=== PATIENT | female | born 1970 | race Caucasian/White ===

== ENCOUNTER 2018-09-27 13:00 | Outpatient (CLI) | payer BC, SELFPAY ==
--- NOTE | 2018-09-27 13:33 | DI.RAD_ITS ---
SYMPTOMS/DIAGNOSIS: SHORTNESS OF BREATH, R06.02 CHEST X-RAY, PA AND LATERAL: The heart is normal in size. The lungs are clear. The mediastinal structures and pleura appear intact. IMPRESSION: Normal chest.
== END 2018-09-27 13:20 ==
PROVIDERS: PCP Nurse Practitioner; Visit Provider Nurse Practitioner
DX: R06.02 Shortness of breath (principal)
CPT/HCPCS: 71046

== ENCOUNTER 2018-12-07 09:05 | Outpatient (REF) | payer BC, SELFPAY ==
[2018-12-07 14:15] LABS: Cholesterol 235 mg/dL (50-200); Glucose 88 mg/dL (70-100); HDL Cholesterol 53 mg/dL (40-60); LDL CHOLESTEROL 162 mg/dL (<100); TSH (W/Ref FT4) 3.12 uIU/mL (0.358-3.74); Triglyceride 63 mg/dL (30-150)
== END 2018-12-07 09:25 ==
LOC: NCHCN 09:05
PROVIDERS: PCP Nurse Practitioner; Visit Provider Nurse Practitioner
DX: E78.5 Hyperlipidemia, unspecified (principal)
CPT/HCPCS: 80061; 82947; 83721; 84443

== ENCOUNTER 2019-01-01 05:53 | Emergency (ER) | payer BC, SELFPAY ==
[2019-01-01 05:59] VITALS: BP 112/76; PULSE 87; RESP 14; TEMP 36.7; O2SAT 98
--- NOTE | 2019-01-01 06:54 | ED.GENADUL_ITS ---
Discharge Plan Disposition Patient Disposition: HOME Condition: Good Discharge Details Chief Complaint: RashLesion Clinical Impression: Zoster Primary Care Provider: Milly Menchaca ED Provider: Rafat Santos [place] Meds and New Rx's Prescriptions: Continued norethindrone acetate [Aygestin] 5 mg tablet 5 mg PO DAILY Qty: 90 RF: 3 bupropion HCl 100 MG tablet extended release 12 hr 100 mg PO DAILY RF: 0 levothyroxine 25 MCG tablet 25 mcg PO DAILY RF: 0 albuterol sulfate 8.5 GM HFA aerosol inhaler 2 puff Inhalation Q6H PRN RF: 0 Excedrin Migraine 1 EACH tablet 2 ea PO PRN RF: 0 Changed valacyclovir [Valtrex] 500 MG tablet 1,000 mg PO TID Qty: 42 RF: 0 Discharge Instructions Instructions: Shingles (ED) Additional Instructions: Difficult to determine whether cold sore or zoster. Given the pain along the face we will treat as zoster. Please take prescription as prescribed. Use acetaminophen or ibuprofen for pain. Follow-up with primary care next week if not better. Return to ED if you develop any neurologic symptoms, eye symptoms, or other concerns. Referrals: Milly Menchaca [Primary Care Provider] - Medical Decision Making Difficult to say whether this is simply HSV versus zoster. Given the facial pain would be more worried about zoster. There is no eye involvement. Ear is fine. Face is without rash. We will go ahead and treat with valacyclovir 1 g every 8 hours for 7 days. Follow-up with primary care next week if not doing better. Return to ED if worse especially with any eye symptoms. HPI General Mode of arrival: ambulatory . Date/Time Provider Initiated Documentation: 01/01/19 06:43 . Limitations to Documentation: no limitations . Information obtained by: patient . HPI Narrative: Patient presents to ED with what she thinks may be cold sore versus zoster to the right lip area. She has had something similar in the past. She is conc erned that recurrent zoster given that the whole side of her face hurts. She has no eye symptoms. She did take 1 g of valacyclovir yesterday morning and last night. She has no other symptomatology. Related Data Home Medications Medication Instructions Recorded Confirmed albuterol sulfate 2 puff INHALATION Q6H PRN inhaler 03/18/14 01/01/19 bupropion HCl 100 mg PO DAILY tab-cap 03/18/14 01/01/19 levothyroxine 25 mcg PO DAILY tab-cap 03/18/14 01/01/19 Excedrin Migraine 2 ea PO PRN 07/11/14 01/01/19 norethindrone acetate 5 mg tablet 5 mg PO DAILY #90 tab-cap 10/05/18 01/01/19 valacyclovir [Valtrex] 1,000 mg PO TID #42 tab-cap 01/01/19 Previous Rx's Medication Instructions Recorded norethindrone acetate 5 mg tablet 5 mg PO DAILY #90 tab-cap 10/05/18 valacyclovir [Valtrex] 1,000 mg PO TID #42 tab-cap 01/01/19 Allergies Allergy/AdvReac Type Severity Reaction Status Date / Time nut - unspecified Allergy Severe Anaphylaxsi Verified 01/01/19 06:03 s Penicillins Allergy Verified 01/01/19 06:03 General Stated Complaint: RashLesion ERICK: 4 Review of Systems Eyes Denies change in vision, Denies eye pain and Denies photophobia ENT Reports mouth lesions [facility] Medical History Acquired hypothyroidism (Acute 10/02/17) Migraine (Acute 10/02/17) Sensorineural hearing loss, bilateral (Acute 01/16/17) Menstrual migraine (Resolved) Surgical History Reduction mammoplasty disc, back Social History Smoking/Tobacco Use Status: Never Alcohol Intake: current Alcohol Intake frequency: holidays/special occasions only Drug use: Never Do you feel safe at home: Yes Do you feel safe in your relationship?: Yes Female Reproductive History Menstrual control method: permanent sterilization (Vasectomy for BC - POPs for cycles.) History History 4 Para 3 Hx # Term Pregnancies Multiple births Hx # Pregnancies Ectopic pregnancies AB induced Hx Number of Living Children AB spontaneous Exam Const General: cooperative, comfortable and no acute distress Orientation: alert and oriented x3 HENMT Head: normocephalic and atraumatic Ears: external ears normal, TM's normal bilaterally and EAC's normal Face and sinus: normal facial exam Mouth: tongue normal, oropharynx normal and lip abnormal (Lesion with 3 vesicles at the corner of the right lip.) Eyes Conjunctivae: conjunctivae normal Pupils: PERRL EOM: EOM intact bilaterally Skin Lesions: no lesions Rashes: no rashes Course Vital Signs Temperature 98.1 F 01/01/19 05:59 Pulse 87 01/01/19 05:59 Respiratory Rate 14 01/01/19 05:59 Blood Pressure 112/76 01/01/19 05:59 Pulse Oximetry 98 01/01/19 05:59 Temperature 98.1 F 01/01/19 05:59 Temperature Source Skin 01/01/19 05:59 Pulse 87 01/01/19 05:59 Respiratory Rate 14 01/01/19 05:59 Respiratory Effort Non-Labored 01/01/19 06:03 Blood Pressure 112/76 01/01/19 05:59 Blood Pressure Position Sitting 01/01/19 05:59 Pulse Oximetry 98 01/01/19 05:59 Oxygen Delivery Method Room Air 01/01/19 05:59 Oxygen Flow Rate 0 01/01/19 05:59 Pain Level 5 01/01/19 05:59
== END 2019-01-01 07:02 | disposition home or self-care (01) ==
PROVIDERS: Emergency Provider Emergency Medicine; PCP Nurse Practitioner
DX: B02.9 Zoster without complications (principal)
CPT/HCPCS: 99283

== ENCOUNTER 2019-12-14 08:16 | Outpatient (REF) | payer BC, SELFPAY ==
[2019-12-14 15:31] LABS: Calculated LDL 126 mg/dL (<100); Cholesterol 180 mg/dL (<200); Glucose 80 mg/dL (74-106); HDL Cholesterol 41 mg/dL (40-60); TSH (W/Ref FT4) 2.25 uIU/mL (0.36-3.74); Triglyceride 68 mg/dL (<150)
== END 2019-12-14 08:36 ==
LOC: NCHCN 08:16
PROVIDERS: PCP Nurse Practitioner; Visit Provider Nurse Practitioner
DX: E78.5 Hyperlipidemia, unspecified (principal); E03.9 Hypothyroidism, unspecified
CPT/HCPCS: 80061; 82947; 84443

== ENCOUNTER 2020-01-16 10:08 | Outpatient (CLI) | payer BC, SELFPAY ==
[2020-01-17 12:02] LABS: COVID-19 RT-PCR UVMMC Result Negative (Negative)
== END 2020-01-16 10:28 ==
PROVIDERS: PCP Nurse Practitioner; Visit Provider Nurse Practitioner
DX: J02.9 Acute pharyngitis, unspecified (principal); J06.9 Acute upper respiratory infection, unspecified
CPT/HCPCS: U0003

== ENCOUNTER 2020-03-02 16:38 | Outpatient (REF) | payer BC, SELFPAY ==
[2020-03-02 20:57] LABS: HCT 42.3 % (36.0-46.0); HGB 14.2 g/dL (11.2-15.7); MCHC 33.6 % (32.0-36.0); MCV 89.2 fL (80-95); MPV 10.6 fL (8.0-11.0); Platelet Count 385 10^3/uL (130-400); RBC 4.74 10^6/uL (3.93-5.22); RDW 13.1 % (11.7-14.6); RDW-SD 43.3 fL
[2020-03-02 21:16] LABS: Iron 98 ug/dL (50-170); Total Iron Binding Capacity 308 ug/dL (250-450); Transferrin Sat 32 % (15-50)
[2020-03-02 21:40] LABS: Vitamin B12 728 pg/mL (193-986)
[2020-03-05 06:17] LABS: Vitamin D 25 Total 23.1 ng/ml (30-100)
== END 2020-03-02 16:58 ==
LOC: NCHCN 16:38
PROVIDERS: PCP Nurse Practitioner; Visit Provider Nurse Practitioner
DX: R53.83 Other fatigue (principal)
CPT/HCPCS: 82306; 85027; 82607; 82746; 83540; 83550

== ENCOUNTER 2020-06-25 00:43 | Outpatient (CLI) | payer BC, SELFPAY ==
--- NOTE | 2020-06-25 | DI.MAMMO_ITS ---
EXAM: MG MAMMO SCREENING CLINICAL HISTORY: SCREENING,Z12.39. TECHNIQUE: Bilateral full field digital CC and MLO mammographic images were obtained with 3D tomosyn thesis and utilizing computer aided detection (CAD). COMPARISON: Prior mammograms dating back to 2012, the most recent being May 2019. FINDINGS: Asymmetric tissue in left breast is unchanged from prior studies. There are no new dominant masses nor malignant appearing microcalcification groups. There is no new architectural distortion nor skin thickening-retraction. IMPRESSION: No radiographic evidence of malignancy. BI-RADS Category 1 - Negative Breast Density - Category B - Scattered areas of fibroglandular density Breast density Category C or D implies that the patient has dense breast tissue. Dense breast tissue can make it harder to find cancer on a mammogram. Dense breast tissue is also associated with an incr eased risk of breast cancer. This information about the result of the mammogram report was provided to the patient to raise their awareness. Use this report when you speak with the patient about their risks for breast cancer, which includes their family history. At that time, you may recommend additional screening tests (Ultrasoun d or MRI) as these tests may add significant information. A negative radiographic report should not delay biopsy if a dominant or clinically suspicious mass is present. Up to ten percent of cancers are not identified on mammography. A negative report may reinforce clinical impression. Adenosis and dense breasts may obscure an underlying neoplasm. False positive reports average 6 to 10%. Patient will receive a letter notifying them of these results.
== END 2020-06-25 01:03 ==
PROVIDERS: PCP Nurse Practitioner; Visit Provider Nurse Practitioner
DX: Z12.31 Encounter for screening mammogram for malignant neoplasm of breast (principal)
CPT/HCPCS: 77063; 77067

== ENCOUNTER 2021-06-10 15:09 | Outpatient (REF) | payer BC, SELFPAY ==
--- NOTE | 2021-06-10 13:30 | PAPFT_PTH ---
PATIENT: Alma Luther LOC: [facility] U#:[id number] AGE/SX: 50/F ROOM: RE06/10/[address]: BRINDA Christensen : 1970 BED: DIS: 06/10/2021 SPEC #: [id number] RECD: 06/10/21 18:03 STATUS: NANCY REQ #: [id number] HEIDE: 06/10/21 13:[address]: Gail Castro DEPT: [facility] Cytology RECD BY: Renee Gonzalez ENTERED: 06/10/21 18:04 SP TYPE: PAPFT OTHR DR: Milly Menchaca Tissues: 1 - CX/ENDOCX FOR PAP SMEARS Procedures: PAP THIN PREP/UVM Screening HPV DNA PROBE Comments: [id number]
== END 2021-06-10 15:10 | disposition home or self-care (01) ==
LOC: LBN 15:09
PROVIDERS: PCP Nurse Practitioner; Visit Provider Nurse Practitioner Family
DX: Z12.4 Encounter for screening for malignant neoplasm of cervix (principal); Z11.51 Encounter for screening for human papillomavirus (HPV)
CPT/HCPCS: 88142; 87624

== ENCOUNTER 2021-06-21 08:43 | Outpatient (REF) | payer BC, SELFPAY ==
[2021-06-21 15:01] LABS: ALT 40 U/L (14-59); AST 22 U/L (15-37); Albumin 4.3 g/dL (3.4-5.0); Alkaline Phosphatase 55 U/L (46-116); BUN 10 mg/dL (7-18); Bilirubin, Total 0.5 mg/dL (0.2-1.0); CREATININE 0.8 mg/dL (0.55-1.02); Calcium 9.2 mg/dL (8.5-10.1); Calculated LDL 123 mg/dL (<100); Chloride 104 mmol/L (98-107); Cholesterol 211 mg/dL (<200); Glucose 84 mg/dL (74-106); HDL Cholesterol 78 mg/dL (40-60); Potassium 4.3 mmol/L (3.5-5.1); Sodium 140 mmol/L (136-145); Total Protein 7.3 g/dL (6.4-8.2); Triglyceride 52 mg/dL (<150)
== END 2021-06-21 08:44 | disposition home or self-care (01) ==
LOC: NCHCN 08:43
PROVIDERS: PCP Nurse Practitioner; Visit Provider Nurse Practitioner
DX: E78.5 Hyperlipidemia, unspecified (principal); E03.9 Hypothyroidism, unspecified; J45.20 Mild intermittent asthma, uncomplicated; F32.9 Major depressive disorder, single episode, unspecified
CPT/HCPCS: 80053; 80061; 84443

== ENCOUNTER 2021-06-25 15:52 | Outpatient (REF) | payer BC, SELFPAY ==
--- NOTE | 2021-06-25 15:00 | ENDOMET_PTH ---
PATIENT: Alma Luther LOC: [facility] #:[id number] AGE/SX: 51/F ROOM: RE06/25/[address]: Jenna Forde : 1970 BED: DIS: 06/25/2021 SPEC #: [id number] RECD: 06/25/21 17:28 STATUS: NANCY REQ #: [id number] HEIDE: 06/25/21 15:[address]: Jenna Forde DEPT: Surgical Specimen RECD BY: Renee Gonzalez ENTERED: 06/25/21 17:29 SP TYPE: Endomet OTHR DR: Milly Menchaca Tissues: 1 - ENDOMETRIUM BX/CURRETTE Procedures: GROSS AND MICRO LEVEL 4 Comments: [id number]
== END 2021-06-25 15:53 | disposition home or self-care (01) ==
LOC: LBN 15:52
PROVIDERS: PCP Nurse Practitioner; Visit Provider Obstetrics & Gynecology Gynecology
DX: N85.8 Other specified noninflammatory disorders of uterus (principal)
CPT/HCPCS: 88305

== ENCOUNTER 2021-07-15 04:17 | Outpatient (CLI) | payer BC, SELFPAY ==
[2021-07-15 10:11] LABS: HGB 12.1 g/dL (11.2-15.7); MCH 25.6 pg (27.0-33.0); MCHC 31.8 % (32.0-36.0); MCV 80.5 fL (80-95); MPV 9.3 fL (8.0-11.0); Platelet Count 420 10^3/uL (130-400); RBC 4.72 10^6/uL (3.93-5.22); RDW 13.8 % (11.7-14.6); RDW-SD 40.8 fL; WBC 6.99 10^3/uL (4.4-10.8)
[2021-07-15 10:49] LABS: Anion Gap 10.5 mmol/L (3-11); CO2 25.5 mmol/L (21.0-32.0); Chloride 104 mmol/L (98-107); HCG Qual (Serum) Negative; Sodium 140 mmol/L (136-145)
[2021-07-16 20:46] LABS: COVID-19 RT-PCR UVMMC Result Negative (Negative)
== END 2021-07-15 04:18 | disposition home or self-care (01) ==
LOC: LBO 04:18
PROVIDERS: PCP Nurse Practitioner; Visit Provider Obstetrics & Gynecology Gynecology
DX: N93.8 Other specified abnormal uterine and vaginal bleeding (principal); Z20.822 Contact with and (suspected) exposure to COVID-19; Z01.818 Encounter for other preprocedural examination; Z01.812 Encounter for preprocedural laboratory examination; Z01.84 Encounter for antibody response examination
CPT/HCPCS: 36415; 80051; 85027; 86850; 86900; 86901; 87635; U0003; 84703

== ENCOUNTER 2021-07-17 08:28 | Day surgery (SDC) | payer BC, SELFPAY ==
[2021-07-17] VITALS (13 sets, daily range): BP systolic 115–152; BP diastolic 66–101; PULSE 74–93; RESP 15–20; TEMP 36–36.9; O2SAT 96–100; BMI 28.1
[2021-07-17] MEDS: Lactated Ringers 1,000 ML 125 ML IV (09:02)
--- NOTE | 2021-07-17 09:34 | W.ANESPRE ---
General Info Date of Service Date Performed: 07/17/21 Height: 5 ft 6 in Weight: 79.1 kg Body Mass Index (BMI): 28.1 Surgical Procedure: Operation Date: 07/17/21 10:25 Proposed Procedures Side Surgeon brendon Carrero Endometrial Ablation Jenna Forde MD Meds Allergies and Home Medications Allergies Allergy/AdvReac Type Severity Reaction Status Date / Time nut - unspecified Allergy Severe Anaphylaxsi Verified 07/17/21 08:45 s Penicillins Allergy Verified 07/17/21 08:45 Home Medication Medication Instructions Recorded bupropion HCl 100 mg PO DAILY tab-cap 03/18/14 levothyroxine 25 mcg PO DAILY tab-cap 03/18/14 Excedrin Migraine 2 ea PO PRN 07/11/14 valacyclovir [Valtrex] 1,000 mg PO TID #42 tab-cap 01/01/19 norethindrone (contraceptive) 0.35 0.35 mg PO DAILY #84 tab 07/12/20 mg tablet albuterol sulfate 2.5 mg INHALATION Q4H PRN 06/27/21 albuterol sulfate 90 mcg/actuation 2 puff INHALATION Q6H PRN 06/27/21 aerosol inhaler epinephrine 0.3 mg/0.3 mL 0.3 mg IM ONCE 06/27/21 injection, auto-injector hydrocortisone acetate 25 mg 25 mg HI BID 06/27/21 rectal suppository triamcinolone acetonide 0.5 % 1 applic TOPICAL BID 06/27/21 topical cream Current Visit Medications: Current Medications Generic Name Dose Route Start Last Admin Trade Name Freq PRN Reason Stop Dose Admin Ringer's Solution 1,000 mls @ 125 mls/hr 07/17/21 06:00 07/17/21 09:02 IV 07/19/21 23:59 125 mls/hr INFUSION HOLLY Administration IV Miscellaneous Supplies 1 each 07/17/21 06:00 Iv Access IV 07/19/21 23:59 DIRECTED HOLLY Sodium Chloride 0 ml 07/17/21 06:00 Normal Saline Flush 10 Ml Syr IV 07/19/21 23:59 PRN PRN Sodium Chloride 0 ml 07/17/21 06:00 Normal Saline 10 Ml Vial IJ 07/19/21 23:59 DIRECTED PRN Sterile Water 0 ml 07/17/21 06:00 Water,Injection,Sterile 10 Ml Vial IJ 07/19/21 23:59 DIRECTED PRN PFSH Active Problems Active Problems: Problem Status Onset Code Sensorineural hearing loss, bilateral 01/16/17 H90.3 Migraine 10/02/17 G43.909 Acquired hypothyroidism 10/02/17 E03.9 Screening for colon cancer Z12.11 Hyperlipidemia E78.5 Asthma, intermittent J45.20 Depression F32.A Hypothyroid E03.9 Abnormal uterine bleeding (AUB) N93.9 History of endometrial biopsy Z92.89 Pre-op exam Z01.818 Medical History Medical History (Updated 07/17/21 @ 08:44 by Sandra Becerra RN) Atopic dermatitis Hx of varicose veins of lower extremity Left ankle surgery Menstrual migraine Vaginal Pap smear with ASC-US Medical History Comments:: Pt states she is anxious/hyper spoke w/ JOVANY Wilkinson. Surgical History Surgical History disc, back Reduction mammoplasty Tobacco Smoking/Tobacco Use Status: Never Alcohol Alcohol Intake: current Alcohol intake frequency: holidays/special occasions only Substance Use Substance use: Never Substance use type: does not use Prental History History 4 Para 3 Hx # Term Pregnancies Multiple births Hx # Pregnancies Ectopic pregnancies AB induced Hx Number of Living Children AB spontaneous Vital Signs and Lab Results Vital Signs Most Recent Vital Signs in EMR: Most Recent Vital Signs Temp Pulse Resp BP Pulse Ox 36.9 C 93 H 20 115/8 L 99 07/17/21 08:38 07/17/21 08:38 07/17/21 08:38 07/17/21 08:38 07/17/21 08:38 Vital Signs Comment Vital Signs Comment:: BP 115/78 Lab Results Blood Type / Crossmatch: Patient ABO/Rh AB Positive 07/15/21 09:35 07/15/21 Antibody Screen NEGATIVE 07/15/21 09:35 07/15/21 Complete Blood Count: White Blood Count 6.99 10^3/uL (4.4-10.8) 07/15/21 09:35 07/15/21 Red Blood Count 4.72 10^6/uL (3.93-5.22) 07/15/21 09:35 07/15/21 Hemoglobin 12.1 g/dL (11.2-15.7) 07/15/21 09:35 07/15/21 Hematocrit 38.0 % (36.0-46.0) 07/15/21 09:35 07/15/21 Platelet Count 420 10^3/uL (130-400) H 07/15/21 09:35 07/15/21 Complete Metabolic Panel: Sodium Level 140 mmol/L (136-145) 07/15/21 09:35 07/15/21 Potassium Level 4.0 mmol/L (3.5-5.1) 07/15/21 09:35 07/15/21 Chloride Level 104 mmol/L (98-107) 07/15/21 09:35 07/15/21 Carbon Dioxide Level 25.5 mmol/L (21.0-32.0) 07/15/21 09:35 07/15/21 Blood Urea Nitrogen 10 mg/dL (7-18) 06/21/21 08:04 06/21/21 Creatinine 0.8 mg/dL (0.55-1.02) 06/21/21 08:04 06/21/21 Estimated GFR/1.73 m2 >= 60.00 (mL/min/1.73m2) 06/21/21 08:04 06/21/21 Calcium Level 9.2 mg/dL (8.5-10.1) 06/21/21 08:04 06/21/21 Albumin 4.3 g/dL (3.4-5.0) 06/21/21 08:04 06/21/21 Glucose Level 84 mg/dL (74-106) 06/21/21 08:04 06/21/21 Liver Function Panel: Alanine Aminotransferase (ALT/SGPT) 40 U/L (14-59) 06/21/21 08:04 06/21/21 Aspartate Amino Transf (AST/SGOT) 22 U/L (15-37) 06/21/21 08:04 06/21/21 Coagulation Panel: No Data to Display Cardiac Panel: No Data to Display Arterial Blood Gas: No Data to Display Venous Blood Gas: No Data to Display Pancreas Panel: No Data to Display Thyroid Panel: Thyroid Stimulating Hormone (TSH) 1.50 uIU/mL (0.36-3.74) 06/21/21 08:04 06/21/21 Infectious Disease: Coronavirus (COVID-19)(PCR) Negative (Negative) 07/15/21 10:27 07/15/21 Blood Cultures: No Data to Display Toxicology Panel: No Data to Display Panel: Serum HCG, Qualitative Negative 07/15/21 09:35 07/15/21 Anesthesia Assessment and Plan Anesthesia History Personal History: Unknown Anesthesia History and Other (2 surgeries in the 90's, both times awoke with anxiety and shaking and unable to sleep x 48 hours) Family History: No Family History of Anesthesia Complications Exercise Tolerance Exercise Tolerance: Metabolic Equivalents>4 Pertinent Negatives Pertinent Negatives: No Symptoms of GERD, No Major Cardiovascular Symptoms or Complaints, No Major Pulmonary Symptoms or Complaints and No History of CVA/TIA Cardiac & Pulmonary Exam Cardiac Exam: Normal S1/S2 Heart Sounds Pulmonary Exam: Clear Bilateral Breath Sounds Implantable Cardiac Device Does patient have a Pacemaker or an ICD?: No Airway Exam Known Difficult Airway: No Mallampati Class: 2 Mouth Opening: Normal (> 3cm) Thyromental Distance: Greater than 3 cm Neck Range of Motion: Full ROM Neck Circumference: Normal Teeth Condition: Normal Dentition ASA Classification ASA Score: ASA 2 Emergency Case?: No NPO Status NPO Status: NPO Clears >2 hours, Solids >8 hours Status Status: Negative HCG Anesthesia Plan Resuscitation Status: Full Code Anesthesia Technique: General Anesthesia Airway Planned: LMA Monitors Used: Standard Monitors
[2021-07-17] MEDS: Bupivacaine 0.25% Pres-Free 30 ML VIAL (11:23)
[2021-07-17] MEDS: Silver Nitrate Stick 1 EACH (11:48)
--- NOTE | 2021-07-17 12:14 | W.PM.DSUDISC ---
Discharge Plan Disposition Patient Disposition: HOME Condition: Fair Discharge Details Attending Provider: Jenna Forde Primary Care Provider: Milly Menchaca Home Meds and New Rx's Prescriptions: Continued bupropion HCl 100 MG tablet extended release 12 hr 100 mg PO DAILY RF: 0 levothyroxine 25 MCG tablet 25 mcg PO DAILY RF: 0 Excedrin Migraine 1 EACH tablet 2 ea PO PRN RF: 0 triamcinolone acetonide 0.5 % cream 1 applic topical BID RF: 0 albuterol sulfate 2.5 mg /3 mL (0.083 %) solution for nebulization 2.5 mg inhalation Q4H PRNRF: 0 albuterol sulfate [ProAir HFA] 90 mcg/actuation HFA aerosol inhaler 2 puff inhalation Q6H PRNRF: 0 hydrocortisone acetate [Anucort-HC] 25 mg suppository 25 mg [place] BID RF: 0 epinephrine [EpiPen 2-Saravanan] 0.3 mg/0.3 mL auto-injector 0.3 mg IM ONCE RF: 0 valacyclovir [Valtrex] 500 MG tablet 1,000 mg PO TID Qty: 42 RF: 0 Discontinued norethindrone (contraceptive) 0.35 mg tablet 0.35 mg PO DAILY Qty: 84 RF: 2 Discharge Instructions Additional Instructions: Keep your follow up appointment with Dr. Forde. You may have vaginal bleeding for 2-3 days after the procedure. There will be watery discharge for 4 to 6 weeks after the ablation. No intercourse or tampons until the discharge has stopped Stand Alone Forms: DSU Post Gynecology Surgery Activity:: Activity as Tolerated Diet:: As Tolerated Discharge Orders Discharge Orders: Discharge Order (Routine); Ordered 07/17/21 Ordered By: Jenna Forde DS: Diagnosis Discharge Diagnosis (1) Abnormal uterine bleeding (AUB): Status: Acute (2) History of endometrial ablation: Status: Acute
--- NOTE | 2021-07-17 12:21 | W.PM.OP ---
Date of service: 07/17/21 Time of Service: 12: Operative Note Operative Note DATE OF PROCEDURE: 07/17/21 PRE-OP DIAGNOSIS: Abnormal uterine bleeding POST-OP DIAGNOSIS: same PROCEDURE: Hydrothermal endometrial ablation SURGEON: Jenna Forde ANESTHESIA TYPE: General LMA/ETT Refer to Anesthesia Record ESTIMATED BLOOD LOSS: 0 PATHOLOGY: none sent COMPLICATIONS: None Patient was transported to: same day Patient's condition: stable Indications: 51yo menstruating female with a history of abnormal uterine bleeding not improved with oral norethindrone. Patient wished definitive treatment after normal endometrial biopsy and normal pelvic ultrasound was performed. Findings: Normal-appearing endometrial cavity. Both tubal ostia were visualized. No intracavitary filling defects. Procedure Description: Patient was taken to the operating room where she was placed in the dorsal supine position and LMA general anesthesia was administered without difficulty. She was then placed in the dorsolithotomy position in yellowfin stirrups and prepped and draped in the usual sterile fashion. SCDs were in place. No antibiotics were required. After a surgical timeout was performed a bivalve speculum was placed in the patient's vagina. The anterior lip of the cervix was infiltrated with 1 cc 0.25% bupivacaine and a single-tooth tenaculum was used to grasp the anterior lip of the cervix. A paracervical block was performed with infiltration of 5 cc of 0.25% bupivacaine at the 4 o'clock and 8 o'clock paracervical spaces respectively. Cervix was then sequentially dilated to a maximum of 8 Luz. A hysteroscope sheath was inserted into the uterine cavity and a cavity assessment was performed with the above noted findings. The tip of the hysteroscope sheath was positioned to allow visualization of the uterine fundus, both tubal ostia in the midportion of the uterine cavity. The sheath was protected from the vaginal sequeira by the vagina proximity to the speculum. Heated isotonic saline was then administered via gravity into the uterus through the sheath. Once a safety assessment was performed the treatment phase of the procedure began and under direct observation the uterine cavity was treated with heated isotonic saline at 90 ?C for 10 minutes. Intrauterine cool-down phase was performed for 1 minute. The uterine cavity was carefully assessed with hysteroscopy and was noted to have a satisfactory treatment effect and the integrity of the uterine cavity was confirmed. After these findings the hysteroscope was removed as were the instruments removed from the vagina. Tenaculum site was noted to be hemostatic. The speculum was removed and the patient placed in the dorsal supine position. She was successfully awakened from anesthesia and transported to day surgery unit in stable condition. All sponge lap needle counts correct x2.
[2021-07-17] MEDS: fentaNYL 100 MCG/2 ML VIAL IVP ×3 (12:27→12:36)
[2021-07-17] MEDS: oxyCODONE 5 mg/Acetaminophen 325 mg TAB PO (13:10)
[2021-07-17] MEDS: Ketorolac 15 MG/ML VIAL IVP (13:24)
[2021-07-17] MEDS: LORazepam 2 MG/ML VIAL 0.5 MG IVP ×2 (13:56→14:29)
[2021-07-17] MEDS: oxyCODONE 5 mg/Acetaminophen 325 mg TAB 1 TAB PO (14:05)
--- NOTE | 2021-07-17 14:34 | W.ANESPOSTOP ---
Postoperative Evaluation Date, Time and Location Date Performed: 07/17/21 Time Performed: 14:34 Patient Location: Day Surgery Unit Vital Signs Most Recent Imported Vital Signs: Most Recent Vital Signs Temp Pulse Resp BP Pulse Ox 36.3 C L 74 18 132/77 100 07/17/21 14:07 07/17/21 14:07 07/17/21 14:07 07/17/21 14:07 07/17/21 14:07 Pain Score Most Recent Pain Score: Most Recent Pain Score Pain Level 7 07/17/21 14:07 Assessment Mental Status: Awake (Alert & Oriented to Patient Baseline) Airway and Respiratory Function: Patent airway with normal (patient baseline) respiratory exam Cardiovascular Function: Hemodynamically Stable Hydration Status: Adequately Hydrated Nausea & Vomiting: No Nausea or Vomiting Pain: Pain is Moderate or Severe Postoperative Pain Management: Pain being addressed with medication Peripheral Nerve Block: Patient did not receive a nerve block Teaching Patient Teaching: Discussed Safe Use of Pain Medication Given Recent Anesthesia Postoperative Comments:: Pt. states with her prior anesthetic 20 years ago, she woke up and was very shaky/anxious due to the anesthesia. I explained that anesthesia has changed since then and she likely would not have this experience again. Her anesthetic was uncomplicated. When she awoke in PACU, she was pain free, no nausea and doing well when asked. She now is in DSU and is rolling in bed, anxious, states she can not stay still and is having 7/10 abdominal discomfort. She has been given oral pain medication as well as ativan with some improvement. Patient is motivated to go home. Additional dose ativan given with great result. Pt. will rest and then be discharged with PO Ativan for home as well. Patient and agree to plan.
== END 2021-07-17 15:50 | disposition home or self-care (01) ==
PROVIDERS: PCP Nurse Practitioner; Visit Provider Obstetrics & Gynecology Gynecology
PROC: (CPT 58353; principal; 2021-07-17 10:15)
DX: N93.9 Abnormal uterine and vaginal bleeding, unspecified (principal); E78.5 Hyperlipidemia, unspecified; J45.909 Unspecified asthma, uncomplicated
CPT/HCPCS: 58563; J1100; J1885; J2060; J2250; J2405; J2704; J3010

== ENCOUNTER → 2022-04-22 17:56 | Outpatient (CLI) | payer BC, SELFPAY ==
--- NOTE | 2022-04-22 | DI.RAD_ITS ---
Exam(s) XR FOREARM LT EXAM: XR FOREARM LT CLINICAL HISTORY: joint pain. TECHNIQUE: 2D digital imaging was performed. Two views. COMPARISON: CR,XR XR WRIST LT COMPLETE from 04/22/2022 FINDINGS: BONES: No acute fracture is present. No bony destructive lesion is seen. Visualized portion of elbow and wrist joints are unremarkable. SOFT TISSUE: Mild soft tissue swelling near ulnar. IMPRESSION: No acute bony abnormality. DATA REPOSITORY: RADIATION DOSE DELIVERED:
--- NOTE | 2022-04-22 | DI.RAD_ITS ---
Exam(s) XR WRIST LT COMPLETE EXAM: XR WRIST LT COMPLETE CLINICAL HISTORY: Joint pain. TECHNIQUE: 2D digital imaging was performed. Three views. COMPARISON: No exams were available for comparison FINDINGS: BONES: No acute fracture is present. No bony destructive lesion is seen. JOINTS: The carpal bones are normally aligned. SOFT TISSUE: Normal. IMPRESSION: Unremarkable radiographs of the left wrist. DATA REPOSITORY: RADIATION DOSE DELIVERED:
--- NOTE | 2022-04-22 18:38 | DI.VRAD_ITS ---
PROCEDURE INFORMATION: Exam: XR Left Forearm Exam date and time: 04/22/2022 18:13 Age: 51 years old Clinical indication: Patient HX: Pain for 10 months TECHNIQUE: Imaging protocol: Radiologic exam of the Left forearm. Views: 2 views. COMPARISON: CR XR WRIST LT COMPLETE 04/22/2022 18:11 FINDINGS: Bones/joints: No acute fracture or subluxation. Partially imaged is a small likely incidental benign exostosis of the distal anterior humerus. Soft tissues: Mild swelling in the distal forearm. IMPRESSION: No acute bony pathology. Dictated and Authenticated by: Carolee Meléndez MD. Ordering:MAG Steen MD
--- NOTE | 2022-04-22 18:39 | DI.VRAD_ITS ---
PROCEDURE INFORMATION: Exam: XR Left Wrist Exam date and time: 04/22/2022 18:11 Age: 51 years old Clinical indication: Pain; Wrist; Left TECHNIQUE: Imaging protocol: Radiologic exam of the Left wrist. Views: 3 or more views. COMPARISON: No relevant prior studies available. FINDINGS: Bones/joints: Mild distal radioulnar degenerative changes. No acute fracture or subluxation. Soft tissues: Mild generalized soft tissue swelling. IMPRESSION: No acute bony pathology. Dictated and Authenticated by: Carolee Meléndez MD. Ordering:MAG Steen MD
== END ==
PROVIDERS: PCP Nurse Practitioner; Visit Provider Nurse Practitioner Family
DX: M79.632 Pain in left forearm (principal); M25.532 Pain in left wrist
CPT/HCPCS: 73090; 73110

== ENCOUNTER 2022-07-28 02:33 | Outpatient (CLI) | payer BC, SELFPAY ==
--- NOTE | 2022-07-28 | DI.MAMMO_ITS ---
Exam(s) MAMMO SCREENING EXAM: MAMMO SCREENING CLINICAL HISTORY: SCREENING, Z12.39 TECHNIQUE: Mammograms were interpreted according to the usual protocol including computer analysis w [employer] CAD system, tomosynthesis and C-view imaging. COMPARISON: 2012 through 2019 FINDINGS: The breasts are composed of scattered fibroglandular densities, Breast Density category B. On the MLO view of the left breast, there is a small asymmetric area of nodularity seen in the centra l tissue, not definitely seen on the CC view. Spot compression views and ultrasound are requested fo r further evaluation. There has been no change in the right breast. No suspicious microcalcifications are seen in either breast.. There is mild bilateral scarring relat ed to prior breast reduction surgery. No skin thickening or abnormal axillary lymph nodes are seen. There has been no significant change from prior exams. IMPRESSION: BI-RADS Category 0 - Assessment Incomplete: Need additional imaging evaluation Yearly screening mammography is recommended. Breast Density - Category B, scattered fibroglandular densities. A negative radiographic report should not delay biopsy if a dominant or clinically suspicious mass is present. Up to ten percent of cancers are not identified on mammography. A negative report may reinforce clinical impression. Adenosis and dense breasts may obscure an underlying neoplasm. False positive reports average 6 to 10%. Patient will receive a letter notifying them of these results.
== END 2022-07-28 02:53 ==
LOC: DI 02:34
PROVIDERS: PCP Nurse Practitioner Family; Visit Provider Nurse Practitioner Family
DX: Z12.31 Encounter for screening mammogram for malignant neoplasm of breast (principal); R92.8 Other abnormal and inconclusive findings on diagnostic imaging of breast
CPT/HCPCS: 77063; 77067

== ENCOUNTER 2022-08-04 01:35 | Outpatient (CLI) | payer BC, SELFPAY ==
--- NOTE | 2022-08-04 | DI.MAMMO_ITS ---
Exam(s) MG MAMMO SCREEN CALL BACK UNI US BREAST LT COMPLETE EXAM: MG MAMMO SCREEN CALL BACK UNI and U/S breast LT complete CLINICAL HISTORY: F/U MAMMO, LT SMALL ASYMMETRIC AREA OF NODULARITY,R92.8. TECHNIQUE: Craniocaudal and mediolateral oblique Full Field Digital Mammography views of the left br east with Computer Aided Diagnosis followed by Tomosynthesis and left breast ultrasound. COMPARISON: Comparison is made with prior examinations. FINDINGS: Mammography/Tomosynthesis: Masses/Architectural Distortion: There of concern is less apparent on the current examination. No linares spicious masses or areas of architectural distortion are identified. Microcalcifictions: No suspicious pleomorphic-type are seen. Skin Thickening/Nipple Retraction: None. Complete left breast US: Echotexture: Normal appearance of the glandular tissue. Shadowing: No suspicious foci. Cyst: There are 2 cysts seen at the 12 o'clock position 1 cm from the nipple the larger measures 5 mm the smaller measures 4.8 mm. Solid lesions: None seen. Ductal dilation: None. IMPRESSION: 1. No evidence of malignancy is noted. 2. Unless there is more urgent need, follow-up screening mammography is recommended, as per [employer] guidelines. 3. The findings were discussed with the patient on the date of the examination. BI-RADS Category 2 - Benign Findings Breast Density - Category B - Scattered areas of fibroglandular density Breast density Category C or D implies that the patient has dense breast tissue. Dense breast tissue can make it harder to find cancer on a mammogram. Dense breast tissue is also associated with an incr eased risk of breast cancer. This information about the result of the mammogram report was provided to the patient to raise their awareness. Use this report when you speak with the patient about their risks for breast cancer, which includes their family history. At that time, you may recommend additional screening tests (Ultrasoun d or MRI) as these tests may add significant information. A negative radiographic report should not delay biopsy if a dominant or clinically suspicious mass is present. Up to ten percent of cancers are not identified on mammography. A negative report may reinforce clinical impression. Adenosis and dense breasts may obscure an underlying neoplasm. False positive reports average 6 to 10%. Patient will receive a letter notifying them of these results.
== END 2022-08-04 01:55 ==
LOC: DI 01:36
PROVIDERS: PCP Nurse Practitioner Family; Visit Provider Nurse Practitioner Family
DX: R92.8 Other abnormal and inconclusive findings on diagnostic imaging of breast (principal)
CPT/HCPCS: 76642; 77063; 77067

== ENCOUNTER 2022-09-15 02:57 | Outpatient (CLI) | payer BC, SELFPAY ==
[2022-09-15 12:45] LABS: Abs Immature Grans 0.02 10^3/uL (0.0-0.06); Absolute Basophil Count 0.04 10^3/uL (0.0-0.2); Absolute Eosinophil Count 0.08 10^3/uL (0.0-0.7); Absolute Monocyte Count 0.52 10^3/uL (0.1-0.8); Absolute Neutrophil Count 3.84 10^3/uL (1.2-6.7); Basophils % 0.6; Eosinophils % 1.3; HGB 13.3 g/dL (11.2-15.7); Immature Grans % 0.3; Lymphocytes % 29.7; MCH 28.6 pg (27.0-33.0); MCHC 33.3 % (32.0-36.0); MCV 86 fL (80-95); MPV 9.6 fL (8.0-11.0); Monocytes % 8.1; Platelet Count 381 10^3/uL (130-400); RBC 4.65 10^6/uL (3.93-5.22); RDW 13.3 % (11.7-14.6); RDW-SD 41.5 fL
[2022-09-15 13:24] LABS: ALT 35 U/L (14-59); AST 32 U/L (15-37); Albumin 3.9 g/dL (3.4-5.0); Alkaline Phosphatase 58 U/L (46-116); BUN 9 mg/dL (7-18); Bilirubin, Total 0.6 mg/dL (0.2-1.0); CREATININE 0.7 mg/dL (0.55-1.02); Calculated LDL 120 mg/dL (<100); Chloride 107 mmol/L (98-107); Cholesterol 210 mg/dL (<200); Estimated GFR 104.65 (mL/min/1.73m2); Glucose 83 mg/dL (74-106); HDL Cholesterol 73 mg/dL (40-60); Sodium 143 mmol/L (136-145); TSH (W/Ref FT4) 1.85 uIU/mL (0.36-3.74); Total Protein 7.1 g/dL (6.4-8.2); Triglyceride 88 mg/dL (<150); Vitamin B12 992 pg/mL (193-986)
== END 2022-09-15 02:58 | disposition home or self-care (01) ==
LOC: LOS 02:57
PROVIDERS: PCP Nurse Practitioner Family; Visit Provider Nurse Practitioner Family
DX: Z00.00 Encounter for general adult medical examination without abnormal findings (principal); E03.9 Hypothyroidism, unspecified; F32.89 Other specified depressive episodes; E78.5 Hyperlipidemia, unspecified
CPT/HCPCS: 36415; 80053; 80061; 82607; 84443; 85025

== ENCOUNTER 2022-12-26 12:49 | Emergency (ER) | payer BC, SELFPAY ==
[2022-12-26 12:52] VITALS: BP 109/69; PULSE 88; RESP 18; TEMP 36.8; O2SAT 96
--- NOTE | 2022-12-26 12:58 | ED.GENADUL_ITS ---
Discharge Plan Disposition Patient Disposition: Home Condition: Stable Discharge Details Clinical Impression: Ovarian cyst Primary Care Provider: LAWRENCE KIM ED Provider: Renee Gould Home Meds and New Rx's Prescriptions: Continued lorazepam [Ativan] 0.5 mg tablet 0.5 mg PO TID PRN (Reason: anxiety) Qty: 6 0RF oxycodone-acetaminophen [Percocet] 5-325 mg tablet 1 tab PO Q6H MDD 4 PRN (Reason: pain) Qty: 4 0RF bupropion HCl 100 MG tablet extended release 12 hr 100 mg PO DAILY levothyroxine 25 MCG tablet 25 mcg PO DAILY Excedrin Migraine 1 EACH tablet 2 ea PO PRN triamcinolone acetonide 0.5 % cream 1 applic topical BID albuterol sulfate 2.5 mg /3 mL (0.083 %) solution for nebulization 2.5 mg inhalation Q4H PRN albuterol sulfate [ProAir HFA] 90 mcg/actuation HFA aerosol inhaler 2 puff inhalation Q6H PRN hydrocortisone acetate [Anucort-HC] 25 mg suppository 25 mg VT BID epinephrine [EpiPen 2-Saravanan] 0.3 mg/0.3 mL auto-injector 0.3 mg IM ONCE Rx Instructions: as a single dose valacyclovir [Valtrex] 500 MG tablet 1,000 mg PO TID Qty: 42 0RF Discharge Instructions Instructions: Ovarian Cyst (ED) Additional Instructions: take ibuprofen and Tylenol as needed for pain Warm compresses as needed Follow-up with [facility] at your scheduled appointment Return earlier should you have weakness, dizziness, dramatic change in pain, or with any new or worsening complaints Referrals: Zaria Luis DO [OSTEOPATHIC DOCTOR] - Discharge Data Discharge Date/Time-TO BE ENTERED AT DEPARTURE: 12/26/22 15:59 Medical Decision Making 52-year-old female presenting with right lower quadrant abdominal pain, history of endometrial ablation, symptoms are consistent with likely ovulation per patient Unsure as the pain is intractable when it does come on, worsens this morning. Denies any fever or chills. Denies any chance of . Sexually active and monogamous with her We will order ultrasound for further differentiation Will likely be discharged home, suspect ovarian cyst Ultrasound per radiology interpretation my review shows likely hemorrhagic right ovarian cyst, hemodynamically stable, referred to [facility] in the outpatient setting Return precautions reviewed and patient expressed understanding HPI General Date/Time Provider Initiated Documentation: 12/26/22 12:50 . HPI Narrative: This 52-year-old female presents with report of right lower quadrant pain intermittently for the past 3 months. Has not been evaluated for her pain. States she is status post endometrial ablation, had a history of endometriosis per patient. States that she is noted that during her cycle she experiences increased pain although she has not really had any vaginal bleeding she suspects this is when she would normally have her cycle. She denies any fever or chills. She does state that her pain resolves in between episodes. She has had the pain significantly since earlier this morning describes it as sharp. Is sexually active and monogamous with her partner, denies risk of sexually transmitted disease. Denies any urinary complaints. Related Data Home Medications Medication Instructions Recorded Confirmed bupropion HCl 100 mg tablet,12 hr 100 mg PO DAILY 03/18/14 08/10/21 sustained-release levothyroxine 25 mcg tablet 25 mcg PO DAILY 03/18/14 08/10/21 hldlibs-dqwlmrupajayn-zpdcocof 250 2 ea PO PRN 07/11/14 08/10/21 mg-250 mg-65 mg tablet (Excedrin Migraine) valacyclovir 500 mg tablet 1,000 mg PO TID #42 tab-caps 01/01/19 08/10/21 (Valtrex) albuterol sulfate 2.5 mg/3 mL 2.5 mg inhalation Q4H PRN 06/27/21 08/10/21 (0.083 %) solution for nebulization albuterol sulfate 90 mcg/actuation 2 puff inhalation Q6H PRN 06/27/21 08/10/21 aerosol inhaler (ProAir HFA) epinephrine 0.3 mg/0.3 mL 0.3 mg IM ONCE 06/27/21 08/10/21 injection, auto-injector (EpiPen 2-Saravanan) hydrocortisone acetate 25 mg 25 mg VT BID 06/27/21 08/10/21 rectal suppository (Anucort-HC) triamcinolone acetonide 0.5 % 1 applic topical BID 06/27/21 08/10/21 topical cream lorazepam 0.5 mg tablet (Ativan) 0.5 mg PO TID PRN anxiety #6 tabs 07/17/21 08/10/21 oxycodone-acetaminophen 5 mg-325 1 tab PO Q6H PRN pain #4 tabs 07/17/21 08/10/21 mg tablet (Percocet) Previous Rx's Medication Instructions Recorded valacyclovir 500 mg tablet 1,000 mg PO TID #42 tab-caps 01/01/19 (Valtrex) lorazepam 0.5 mg tablet (Ativan) 0.5 mg PO TID PRN anxiety #6 tabs 07/17/21 oxycodone-acetaminophen 5 mg-325 1 tab PO Q6H PRN pain #4 tabs 07/17/21 mg tablet (Percocet) Allergies Allergy/AdvReac Type Severity Reaction Status Date / Time nut - unspecified Allergy Severe Anaphylaxsi Verified 07/17/21 08:45 s Penicillins Allergy Verified 07/17/21 08:45 General Stated Complaint: Abd Prob ERICK: 3 PFSH All Active Problems (Updated 12/26/22 @ 15:54 by MILAN Durand) Ovarian cyst (Acute) History of endometrial ablation (Acute) Sensorineural hearing loss, bilateral (Acute 01/16/17) Migraine (Acute 10/02/17) Acquired hypothyroidism (Acute 10/02/17) Screening for colon cancer (Acute) Hyperlipidemia (Acute) Asthma, intermittent (Acute) Depression (Chronic) Hypothyroid (Chronic) Medical History (Updated 12/26/22 @ 15:54 by MILAN Durand) Abnormal uterine bleeding (AUB) Anesthesia complication Always Wakes up extremely fidgety/anxious, Ativan works well Atopic dermatitis Hx of varicose veins of lower extremity Left ankle surgery Menstrual migraine Vaginal Pap smear with ASC-US Surgical History (Updated 07/17/21 @ 12:15 by Jenna Forde MD) disc, back Reduction mammoplasty Family History Mother No problems noted. Father Heart disease at 72 during cardiac surgery one week after [place] Myocardial infarction Social History Smoking/Tobacco Use Status: Never Smoking risk assessment performed?: Yes Alcohol Intake: current Alcohol Intake frequency: holidays/special occasions only Drug use: Never Substance use type: does not use Do you feel safe at home: Yes Do you feel safe in your relationship?: Yes Female Reproductive History Menstrual control method: permanent sterilization History History 4 Para 3 Hx # Term Pregnancies Multiple births Hx # Pregnancies Ectopic pregnancies AB induced Hx Number of Living Children AB spontaneous Exam Narrative Exam Narrative: Patient with mild tenderness to right lower quadrant, no rebound or guarding, alert and oriented, no acute distress, distal pulses intact, lungs clear to auscultation, cardiac rate rhythm regular Course Vital Signs Vital signs: Vital Signs Temperature 36.8 C 12/26/22 12:52 Pulse 88 12/26/22 12:52 Respiratory Rate 18 12/26/22 12:52 Blood Pressure 109/69 12/26/22 12:52 Pulse Oximetry 96 12/26/22 12:52 Temperature 36.8 C 12/26/22 12:52 Temperature Source Skin 12/26/22 12:52 Pulse 88 12/26/22 12:52 Respiratory Rate 18 12/26/22 12:52 Blood Pressure 109/69 12/26/22 12:52 Blood Pressure Position Sitting 12/26/22 12:52 Pulse Oximetry 96 12/26/22 12:52 Oxygen Delivery Method Room Air 12/26/22 12:52 Oxygen Flow Rate 0 12/26/22 12:52 Pain Level 2 12/26/22 12:52
--- NOTE | 2022-12-26 13:48 | DI.US_ITS ---
Exam(s) US PELVIS TRANSVAGINAL EXAM: US PELVIS TRANSVAGINAL CLINICAL HISTORY: RLQ pain, evaluate appendix and ovary. TECHNIQUE: Transabdominal and transvaginal pelvic ultrasound was performed using standard protocol. COMPARISON: US US PELVIS TRANSVAGINAL from 06/25/2021 FINDINGS: UTERUS: Position: Anteverted. Size: 8.2 long by 5.6 AP by 6.2 transverse cm Endometrium: There are a few hyperechoic nodules seen arising from the fundal endometrium which may r epresent polyps. The patient has history of endometrial ablation in June 2021. Myometrium: Unremarkable. Cervix: Unremarkable. OVARIES: Right: 3.1 x 3.5 x 2.5 cm Cyst or mass: No suspicious cystic or solid masses. There is a 2.1 x 1.6 x 1.8 cm simple cyst. Left: 2.8 x 1.6 x 2.2 cm Cyst or mass: No suspicious cystic or solid masses. There is a 1 cm hemorrhagic cyst. DOPPLER: Color: Symmetric and uniform flow to both ovaries. CUL-DE-SAC: Free fluid: There is a small amount of free fluid adjacent to the uterine fundus. Other: And appendix was not visualized on this examination. IMPRESSION: 1. 2.1 x 1.6 x 1.8 cm right ovarian cyst. 2. The appendix was not visualized on this examination. No sonographic evidence to suggest an append icitis. 3. A few hyperechoic nodules seen arising from the fundal endometrium. These are nonspecific. This may represent endometrial polyps. This may be sequelae of the patient's endometrial ablation. Pleas e correlate clinically. Gynecologic follow-up may be considered. Unexpected findings DATA REPOSITORY:
[2022-12-26 13:55] LABS: Abs Immature Grans 0.04 10^3/uL (0.0-0.06); Absolute Basophil Count 0.04 10^3/uL (0.0-0.2); Absolute Eosinophil Count 0.11 10^3/uL (0.0-0.7); Basophils % 0.4; Eosinophils % 1.1; HCT 39.6 % (36.0-46.0); HGB 13.4 g/dL (11.2-15.7); Immature Grans % 0.4; Lymphocytes % 13.9; MCH 28.5 pg (27.0-33.0); MCHC 33.8 % (32.0-36.0); MCV 84 fL (80-95); MPV 8.9 fL (8.0-11.0); Monocytes % 9.9; Neutrophils % 74.3; Platelet Count 347 10^3/uL (130-400); RDW 13.2 % (11.7-14.6); WBC 10.09 10^3/uL (4.4-10.8)
[2022-12-26 14:00] LABS: Bilirubin Negative (Negative); Blood Small (Negative); Clarity Sl Cloudy (Clear); Glucose Negative (Negative); Ketones Negative (Negative); Leukocyte Esterase Negative (Negative); Nitrite Negative (Negative); Specific Gravity 1.015 (1.005-1.025); Urobilinogen 0.2 mg/dL (Up to 0.2)
[2022-12-26 14:07] LABS: RBC 0-2 HPF (0-2); WBC Negative HPF (0-5)
[2022-12-26 14:08] LABS: Bacteria Negative HPF (Negative); C & S Indicated? No/Sq. Contamination; Casts Negative LPF (Negative); Crystals Negative HPF (Negative); Epithelial Cells Many HPF (Negative); Mucus Negative (Negative); Other Cells Negative (Negative)
[2022-12-26 14:10] LABS: ALT 45 U/L (14-59); AST 24 U/L (15-37); Albumin 3.9 g/dL (3.4-5.0); Alkaline Phosphatase 97 U/L (46-116); Anion Gap 6.9 mmol/L (3-11); BUN 8 mg/dL (7-18); Bilirubin, Total 0.5 mg/dL (0.2-1.0); CO2 27.1 mmol/L (21.0-32.0); CREATININE 0.7 mg/dL (0.55-1.02); Chloride 103 mmol/L (98-107); Estimated GFR 104.65 (mL/min/1.73m2); Glucose 96 mg/dL (74-106); Lipase 44 U/L (16-77); Sodium 137 mmol/L (136-145); Total Protein 7.4 g/dL (6.4-8.2)
[2022-12-26 15:59] VITALS: PULSE 68; RESP 16; O2SAT 98
== END 2022-12-26 15:59 | disposition home or self-care (01) ==
PROVIDERS: Emergency Provider Physician Assistant; PCP Nurse Practitioner Family
DX: R10.31 Right lower quadrant pain (principal); N83.201 Unspecified ovarian cyst, right side
CPT/HCPCS: 36415; 80053; 81025; 83690; 99284; 76830; 76856; 81003; 81015; 85025

== ENCOUNTER 2024-02-17 08:52 | Outpatient (REF) | payer BC, SELFPAY ==
[2024-02-17 15:13] LABS: HCT 43.6 % (36.0-46.0); HGB 14.4 g/dL (11.2-15.7); MCH 28.9 pg (27.0-33.0); MCV 88 fL (80-95); MPV 9.5 fL (8.0-11.0); Platelet Count 386 10^3/uL (130-400); RBC 4.98 10^6/uL (3.93-5.22); RDW-SD 41.9 fL; WBC 5.37 10^3/uL (4.4-10.8)
[2024-02-17 15:37] LABS: Iron 73 ug/dL (50-170); Total Iron Binding Capacity 317 ug/dL (250-450); Transferrin Sat 23 % (15-50)
[2024-02-17 16:02] LABS: ALT 54 U/L (14-59); AST 31 U/L (15-37); Albumin 4.1 g/dL (3.4-5.0); Alkaline Phosphatase 72 U/L (46-116); Anion Gap 7.4 mmol/L (3-11); BUN 12 mg/dL (7-18); Bilirubin, Total 0.61 mg/dL (0.2-1.0); CO2 28.6 mmol/L (21.0-32.0); CREATININE 0.7 mg/dL (0.55-1.02); Calculated LDL 120 mg/dL (<100); Chloride 105 mmol/L (98-107); Cholesterol 201 mg/dL (<200); Ferritin 27 ng/mL (8-252); Glucose 93 mg/dL (74-106); HDL Cholesterol 63 mg/dL (40-60); Potassium 4.3 mmol/L (3.5-5.1); Sodium 141 mmol/L (136-145); TSH (W/Ref FT4) 3.86 uIU/mL (0.36-3.74); Total Protein 7.1 g/dL (6.4-8.2); Triglyceride 91 mg/dL (<150); Vitamin B12 874 pg/mL (193-986); Vitamin D 25 Total 21.7 ng/mL (30-100)
[2024-02-17 16:37] LABS: FREE T4 0.84 ng/dL (0.76-1.46)
== END 2024-02-17 08:53 | disposition home or self-care (01) ==
LOC: NCHCN 08:52
PROVIDERS: PCP Nurse Practitioner Family; Visit Provider Nurse Practitioner Family
DX: Z00.00 Encounter for general adult medical examination without abnormal findings (principal); E03.9 Hypothyroidism, unspecified; Z71.3 Dietary counseling and surveillance; E55.9 Vitamin D deficiency, unspecified
CPT/HCPCS: 80053; 80061; 82306; 85027; 82607; 82728; 83540; 83550; 84439; 84443

== ENCOUNTER 2024-04-18 02:08 | Outpatient (CLI) | payer BC, SELFPAY ==
--- NOTE | 2024-04-18 08:40 | DI.MAMMO_ITS ---
Exam(s) MAMMO SCREENING EXAM: MAMMO SCREENING CLINICAL HISTORY: SCREENING, Z12.31 TECHNIQUE: Mammograms were interpreted according to the usual protocol including computer analysis w [employer] CAD system, tomosynthesis and C-view imaging. COMPARISON: No exams were available for comparison FINDINGS: The breasts are composed of scattered fibroglandular densities, Breast Density category B. No suspicious masses or suspicious microcalcifications are seen. Areas of bilateral scarring related to breast reduction. No skin thickening or abnormal axillary lymph nodes are seen. There has been no significant change from prior exams. IMPRESSION: BI-RADS Category 2 - Benign Findings Yearly screening mammography is recommended. Breast Density - Category B, scattered fibroglandular densities. A negative radiographic report should not delay biopsy if a dominant or clinically suspicious mass is present. Up to ten percent of cancers are not identified on mammography. A negative report may reinforce clinical impression. Adenosis and dense breasts may obscure an underlying neoplasm. False positive reports average 6 to 10%. Patient will receive a letter notifying them of these results.
== END 2024-04-18 02:28 ==
LOC: DI 02:08
PROVIDERS: PCP Nurse Practitioner Family; Visit Provider Nurse Practitioner Family
DX: Z12.31 Encounter for screening mammogram for malignant neoplasm of breast (principal)
CPT/HCPCS: 77063; 77067

== ENCOUNTER 2024-10-11 13:27 | Outpatient (REF) | payer BC, SELFPAY ==
[2024-10-11 15:08] LABS: TSH 1.88 uIU/mL (0.36-3.74)
== END 2024-10-11 13:28 | disposition home or self-care (01) ==
LOC: NCHCN 13:27
PROVIDERS: PCP Nurse Practitioner Family; Visit Provider Nurse Practitioner Family
DX: E03.9 Hypothyroidism, unspecified (principal)
CPT/HCPCS: 84443

== ENCOUNTER 2025-01-08 16:23 | Emergency (ER) | payer BC, SELFPAY ==
[2025-01-08 16:24] VITALS: BP 131/82; PULSE 78; RESP 18; TEMP 36.3; O2SAT 98
--- NOTE | 2025-01-08 16:42 | W.ED.GENAD ---
Discharge Plan Disposition Patient Disposition: Home Condition: Stable Discharge Details Clinical Impression: Allergic reaction Primary Care Provider: LAWRENCE KIM ED Provider: Celia Genao Home Meds and New Rx's Prescriptions: New famotidine [Pepcid] 40 mg tablet 40 mg PO DAILY 7 Days Qty: 7 0RF Rx Instructions: Take 1 tablet by mouth daily for the next 7 days prednisone 50 mg tablet 50 mg PO DAILY 5 Days Qty: 5 0RF Rx Instructions: Take 1 tablet daily for the next 5 days Continued lorazepam [Ativan] 0.5 mg tablet 0.5 mg PO TID PRN (Reason: anxiety) Qty: 6 0RF oxycodone-acetaminophen [Percocet] 5-325 mg tablet 1 tab PO Q6H MDD 4 PRN (Reason: pain) Qty: 4 0RF bupropion HCl 100 MG tablet extended release 12 hr 100 mg PO DAILY levothyroxine 25 MCG tablet 25 mcg PO DAILY Excedrin Migraine 1 EACH tablet 2 ea PO PRN triamcinolone acetonide 0.5 % cream 1 applic topical BID albuterol sulfate 2.5 mg /3 mL (0.083 %) solution for nebulization 2.5 mg inhalation Q4H PRN albuterol sulfate [ProAir HFA] 90 mcg/actuation HFA aerosol inhaler 2 puff inhalation Q6H PRN hydrocortisone acetate [Anucort-HC] 25 mg suppository 25 mg GA BID epinephrine [EpiPen 2-Saravanan] 0.3 mg/0.3 mL auto-injector 0.3 mg IM ONCE Rx Instructions: as a single dose valacyclovir [Valtrex] 500 MG tablet 1,000 mg PO TID Qty: 42 0RF estradiol 0.05 mg/24 hr patch semiweekly 1 patch transdermal ONCE Patient Comments: APPLY 1 PATCH TRANSDERMALLY AND CHANGE TWICE A WEEK Discontinued progesterone micronized 100 mg capsule 100 mg PO DAILY Patient Comments: patient is allergic to this medication Discharge Instructions Instructions: Allergic Reaction ED Additional Instructions: Please do not take any more of the progesterone tablets. Please follow-up with your primary care provider or the prescribing provider to discuss the reaction continue to take 1 or 2 Benadryl every 6-8 hours as needed for symptoms. Please take the prednisone 1 tablet a day for the next 5 days. Please take Pepcid which is a histamine 2 beatriz once daily for the next 7 days. Follow up with primary care provider in 3-5 days. Return to ED sooner if any worsening itching, dizziness trouble breathing or concerns. If you do have any more trouble swallowing or wheezing you may take an EpiPen and come back to the ER. Thank you for allowing us to care for you today. Referrals: LAWRENCE KIM, [facility] [Primary Care Provider, Medicine] - 3 days Discharge Data Discharge Date/Time-TO BE ENTERED AT DEPARTURE: 01/08/25 17:21 HPI General Mode of arrival: ambulatory. Date/Time Provider Initiated Documentation: 01/08/25 16:25. Limitations to Documentation: no limitations. Information obtained by: patient, RN notes reviewed and old records reviewed. HPI Narrative: 54-year-old female presents to the ER with a chief complaint of possible allergic reaction to progesterone tablet that she took around 11:00 today. Patient states this is the first time she took the progesterone 100 mg tablet. It is made with peanut oil per the pharmacist. She is allergic to nuts. She reports having nausea dizziness eyes itching and throat itchiness. She did take an Gertrudis at 2 AM this morning. She does have an EpiPen at home. No wheezing or trouble breathing. This is a long-acting medication the half-life per patient report is approximately 24 hours. Related Data Home Medications ?Medication ?Instructions ?Recorded ?Confirmed bupropion HCl 100 mg tablet,12 hr 100 mg PO DAILY 03/18/14 01/08/25 sustained-release levothyroxine 25 mcg tablet 25 mcg PO DAILY 03/18/14 01/08/25 [id number] 250 2 ea PO PRN 07/11/14 01/08/25 mg-250 mg-65 mg tablet (Excedrin Migraine) valacyclovir 500 mg tablet 1,000 mg (2 x 500 mg) PO TID #42 01/01/19 01/08/25 (Valtrex) tab-caps albuterol sulfate 2.5 mg/3 mL 2.5 mg inhalation Q4H PRN 06/27/21 01/08/25 (0.083 %) solution for nebulization albuterol sulfate 90 mcg/actuation 2 puff inhalation Q6H PRN 06/27/21 01/08/25 aerosol inhaler (ProAir HFA) epinephrine 0.3 mg/0.3 mL 0.3 mg IM ONCE 06/27/21 01/08/25 injection, auto-injector (EpiPen 2-Saravanan) hydrocortisone acetate 25 mg 25 mg GA BID 06/27/21 12/31/22 rectal suppository (Anucort-HC) triamcinolone acetonide 0.5 % 1 applic topical BID 06/27/21 12/31/22 topical cream lorazepam 0.5 mg tablet (Ativan) 0.5 mg PO TID PRN anxiety #6 tabs 07/17/21 01/08/25 oxycodone-acetaminophen 5 mg-325 1 tab PO Q6H PRN pain #4 tabs 07/17/21 01/08/25 mg tablet (Percocet) estradiol 0.05 mg/24 hr semiweekly 1 patch transdermal ONCE 01/08/25 01/08/25 transdermal patch famotidine 40 mg tablet (Pepcid) 40 mg PO DAILY Allergic reaction 7 01/08/25 days #7 tabs prednisone 50 mg tablet 50 mg PO DAILY Inflammation 5 days 01/08/25 #5 tabs Previous Rx's ?Medication ?Instructions ?Recorded valacyclovir 500 mg tablet 1,000 mg (2 x 500 mg) PO TID #42 01/01/19 (Valtrex) tab-caps lorazepam 0.5 mg tablet (Ativan) 0.5 mg PO TID PRN anxiety #6 tabs 07/17/21 oxycodone-acetaminophen 5 mg-325 1 tab PO Q6H PRN pain #4 tabs 07/17/21 mg tablet (Percocet) famotidine 40 mg tablet (Pepcid) 40 mg PO DAILY Allergic reaction 7 01/08/25 days #7 tabs prednisone 50 mg tablet 50 mg PO DAILY Inflammation 5 days 01/08/25 #5 tabs Allergies Allergy/AdvReac Type Severity Reaction Status Date / Time nut - unspecified Allergy Severe Anaphylaxsi Verified 01/08/25 16:29 s progesterone Allergy Severe Dizziness/L Verified 01/08/25 16:43 ighthead Penicillins Allergy UNCERTAIN Verified 01/08/25 16:29 General Stated Complaint: Allergic ERICK: 3 Review of Systems All systems reviewed & are unremarkable except as noted in HPI and below Eyes Eyes: Reports itchy eyes ENT Ears, Nose, Mouth, and Throat: Reports dizziness and Reports other (Itchy throat) Cardiovascular Cardiovascular: Denies dyspnea Respiratory Respiratory: Denies dyspnea and Denies wheezing Gastrointestinal Gastrointestinal: Reports nausea Neurologic Neurologic: Reports dizziness Allergic/Immunologic Allergic/Immunologic: Reports itchy eyes and Denies wheezing Exam Narrative Exam Narrative: Constitutional: Alert and oriented x3. Appears stated age. Normal body habitus. Head: Normocephalic, no trauma. Eyes: Pupils PERRL, Red reflex noted, EOM's intact. Eyelids symmetrical without lesions, discharge, or swelling. ENT: Bilateral TM's WNL, External ear normal to inspection, no mastoid TTP, swelling, or erythema, Nasal turbinates WNL, no nasal discharge. Normal dentition, Posterior pharynx WNL, no exudate. Chest: RRR, Normal S1, S2, distal pulses intact. Resp: Lungs clear to auscultation bilaterally, no wheezes, rales, or rhonchi. Abdomen: Soft, non-distended, Normoactive bowel sounds all 4 quads. Musculoskeletal: Normal gait, Moves all 4 extremities without difficulty. Skin: No suspicious rashes or lesions. Capillary refill less than 2 sec. Neurologic: Cranial nerves II-XII intact. Alert and oriented x 3. Motor: No deficits noted. Sensory: Intact bilaterally all 4 extremities. Hematologic/Lymphatic: No ecchymosis, no lymphadenopathy. Course Vital Signs Vital signs: Vital Signs Temperature 36.3 C L 01/08/25 16:24 Pulse 78 01/08/25 16:24 Respiratory Rate 18 01/08/25 16:24 Blood Pressure 131/82 01/08/25 16:24 Pulse Oximetry 98 01/08/25 16:24 Temperature 36.3 C L 01/08/25 16:24 Temperature Source Oral 01/08/25 16:24 Pulse 78 01/08/25 16:24 Respiratory Rate 18 01/08/25 16:24 Respiratory Effort Normal 01/08/25 16:38 Respiratory Pattern Normal 01/08/25 16:38 Blood Pressure 131/82 01/08/25 16:24 Blood Pressure Position Sitting 01/08/25 16:24 Pulse Oximetry 98 01/08/25 16:24 Oxygen Delivery Method Room Air 01/08/25 16:24 Oxygen Flow Rate 0 01/08/25 16:24 Medical Decision Making 54-year-old female presents to the ER with a chief complaint of possible allergic reaction to progesterone tablet that she took around 11:00 today. Patient states this is the first time she took the progesterone 100 mg tablet. It is made with peanut oil per the pharmacist. She is allergic to nuts. She reports having nausea dizziness eyes itching and throat itchiness. She did take an Gertrudis at 2 AM this morning. She does have an EpiPen at home. No wheezing or trouble breathing. This is a long-acting medication the half-life per patient report is approximately 24 hours. Benadryl 25 mg p.o. ordered, 40 mg of Pepcid, 60 mg of prednisone p.o. and 4 mg of Zofran ODT. Will continue to observe. Expected disposition will be to discharge with Pepcid and prednisone. Patient remained hemodynamically stable. Given prescription for Pepcid and prednisone instructed to follow-up with PCP or prescribing provider. Discussed strict return instructions. Instructed that if patient needed to give herself an EpiPen that she should return immediately to the emergency department she verbalized understanding. This text was generated using [employer] system, please disregard any oddities of phrase or misspellings. Medical Records Medical records reviewed: Yes I reviewed the patient's medical records. PFSH All Active Problems (Updated 01/08/25 @ 17:06 by Celia Genao NP) Allergic reaction (Acute) Ty (Acute) History of endometrial ablation (Acute) Sensorineural hearing loss, bilateral (Acute 01/16/17) Migraine (Acute 10/02/17) Acquired hypothyroidism (Acute 10/02/17) Screening for colon cancer (Acute) Hyperlipidemia (Acute) Asthma, intermittent (Acute) Depression (Chronic) Hypothyroid (Chronic) Medical History (Updated 01/08/25 @ 17:06 by Celia Genao NP) Anesthesia complication Always Wakes up extremely fidgety/anxious, Ativan works well Hx of varicose veins of lower extremity Left ankle surgery Abnormal uterine bleeding (AUB) Atopic dermatitis Vaginal Pap smear with ASC-US Menstrual migraine Surgical History (Updated 07/17/21 @ 12:15 by Jenna Forde MD) disc, back Reduction mammoplasty Family History Mother No problems noted. Father Heart disease at 72 during cardiac surgery one week after [place] Myocardial infarction Social History Smoking/Tobacco Use Status: Never Smoking risk assessment performed?: Yes Alcohol Intake: current Alcohol Intake frequency: holidays/special occasions only Drug use: Never Substance use type: does not use Do you feel safe at home: Yes Do you feel safe in your relationship?: Yes Female Reproductive History Menstrual control method: permanent sterilization History History 4 Para 3 Hx # Term Pregnancies Multiple births Hx # Pregnancies Ectopic pregnancies AB induced Hx Number of Living Children AB spontaneous
[2025-01-08] MEDS: diphenhydrAMINE 25 MG CAP PO (16:49)
[2025-01-08] MEDS: predniSONE 20 MG TAB 60 MG PO (16:49)
[2025-01-08] MEDS: Famotidine 20 MG TAB 40 MG PO (16:49)
== END 2025-01-08 17:21 | disposition home or self-care (01) ==
PROVIDERS: Emergency Provider Registered Nurse Emergency; PCP Nurse Practitioner Family
DX: R11.0 Nausea (principal); R42 Dizziness and giddiness; T38.5X5A Adverse effect of other estrogens and progestogens, initial encounter; E78.5 Hyperlipidemia, unspecified; E03.9 Hypothyroidism, unspecified; Z91.018 Allergy to other foods; Y92.89 Other specified places as the place of occurrence of the external cause
CPT/HCPCS: 99283; J7512

== ENCOUNTER 2025-02-16 11:29 | Outpatient (REF) | payer BC, SELFPAY ==
[2025-02-16 15:12] LABS: Abs Immature Grans 0.08 10^3/uL (0.0-0.06); HCT 39.3 % (36.0-46.0); HGB 12.9 g/dL (11.2-15.7); Immature Grans % 1.1 %; MCH 27.8 pg (27.0-33.0); MCHC 32.8 % (32.0-36.0); MCV 85 fL (80-95); MPV 9.4 fL (8.0-11.0); Platelet Count 524 10^3/uL (130-400); RBC 4.64 10^6/uL (3.93-5.22); RDW 13.2 % (11.7-14.6); RDW-SD 40.8 fL; WBC 7.31 10^3/uL (4.4-10.8)
[2025-02-16 15:16] LABS: ALT 48 U/L (14-59); AST 27 U/L (15-37); Albumin 3.9 g/dL (3.4-5.0); Alkaline Phosphatase 98 U/L (46-116); Anion Gap 10.5 mmol/L (3-11); BUN 11 mg/dL (7-18); Bilirubin, Total 0.4 mg/dL (0.2-1.0); CO2 24.5 mmol/L (21.0-32.0); Calcium 9.4 mg/dL (8.5-10.1); Chloride 108 mmol/L (98-107); Estimated GFR 112.08 (mL/min/1.73m2); Glucose 96 mg/dL (74-106); Magnesium 2.2 mg/dL (1.8-2.4); Potassium 4.0 mmol/L (3.5-5.1); Sodium 143 mmol/L (136-145); Total Protein 6.9 g/dL (6.4-8.2)
== END 2025-02-16 11:30 | disposition home or self-care (01) ==
LOC: NCHCN 11:29
PROVIDERS: PCP Nurse Practitioner Family; Visit Provider Nurse Practitioner Family
DX: R19.7 Diarrhea, unspecified (principal)
CPT/HCPCS: 80053; 83735; 85025

== ENCOUNTER 2025-02-17 18:50 | Outpatient (REF) | payer BC, SELFPAY ==
[2025-02-17 21:34] LABS: Shiga Toxin PCR Negative (Negative); Shigella/Enteroinvasive Ecoli Negative (Negative)
[2025-02-20 17:27] LABS: Campylobacter PCR Positive (Negative)
== END 2025-02-17 18:51 | disposition home or self-care (01) ==
LOC: NCHCN 18:50
PROVIDERS: PCP Nurse Practitioner Family; Visit Provider Nurse Practitioner Family
DX: R19.7 Diarrhea, unspecified (principal)
CPT/HCPCS: 87015; 87269; 87272; 87505

== ENCOUNTER 2025-02-23 12:16 | Outpatient (REF) | payer BC, SELFPAY ==
--- NOTE | 2025-02-23 11:20 | ENDOMET_PTH ---
PATIENT: Alma Luther LOC: [facility] U#:[id number] AGE/SX: 54/F ROOM: RE02/23/[address]: Noemy Hernández MD : 1970 BED: DIS: 02/23/2025 SPEC #: [id number] RECD: 02/23/25 17:00 STATUS: NANCY RESohail #: [id number] HEIDE: 02/23/25 11:[address]: Noemy Hernández DEPT: Surgical Specimen RECD BY: Renee Gonzalez ENTERED: 02/23/25 17:00 SP TYPE: Endomet OTHR DR: Madhavi Scott Tissues: 1 - ENDOMETRIUM BX/ERIKA Procedures: GROSS AND MICRO LEVEL 4 Comments: [id number] (2ND SPEC WAS SPILLED ON DRAMADEO FROM SPEC 1)
== END 2025-02-23 12:17 | disposition home or self-care (01) ==
LOC: LBN 12:16
PROVIDERS: PCP Nurse Practitioner Family; Visit Provider Obstetrics & Gynecology
DX: N85.8 Other specified noninflammatory disorders of uterus (principal)
CPT/HCPCS: 88305

== ENCOUNTER 2025-03-08 08:56 | Outpatient (REF) | payer BC, SELFPAY ==
[2025-03-08 15:04] LABS: HCT 39.9 % (36.0-46.0); HGB 12.9 g/dL (11.2-15.7); MCH 27.7 pg (27.0-33.0); MCHC 32.3 % (32.0-36.0); MCV 86 fL (80-95); MPV 9.9 fL (8.0-11.0); Platelet Count 342 10^3/uL (130-400); RBC 4.65 10^6/uL (3.93-5.22); RDW 13.5 % (11.7-14.6); RDW-SD 42.5 fL; WBC 4.22 10^3/uL (4.4-10.8)
[2025-03-08 15:29] LABS: Hemoglobin A1C 5.3 % (<5.7)
[2025-03-08 15:48] LABS: Calculated LDL 106 mg/dL (<100); Cholesterol 184 mg/dL (<200); HDL Cholesterol 66 mg/dL (>or=50); Triglyceride 64 mg/dL (<150); Vitamin D 25 Total 31 ng/mL (30-100)
== END 2025-03-08 08:57 | disposition home or self-care (01) ==
LOC: NCHCN 08:56
PROVIDERS: PCP Nurse Practitioner Family; Visit Provider Nurse Practitioner Family
DX: Z00.00 Encounter for general adult medical examination without abnormal findings (principal); E78.5 Hyperlipidemia, unspecified; E55.9 Vitamin D deficiency, unspecified; Z68.25 Body mass index [BMI] 25.0-25.9, adult
CPT/HCPCS: 80061; 82306; 85027; 83036

== ENCOUNTER 2025-05-15 03:30 | Outpatient (CLI) | payer BC, SELFPAY ==
--- NOTE | 2025-05-15 | DI.MAMMO_ITS ---
Exam(s) MAMMO SCREENING EXAM: MAMMO SCREENING CLINICAL HISTORY: SCREENING, Z12.31 TECHNIQUE: Bilateral full field digital CC and MLO mammographic images were obtained with 3D tomosynthesis and utilizing computer aided detection (CAD). COMPARISON: Comparison is made with prior examinations. FINDINGS: Masses/Architectural Distortion: No suspicious masses or areas of architectural distortion are present. The patient has had bilateral breast reduction surgery in the past. Microcalcifications: No suspicious pleomorphic-type are seen. Skin Thickening/Nipple Retraction: None. IMPRESSION: 1. No significant interval change with no specific features of malignancy noted. 2. Unless there is more urgent need, screening mammography is recommended, as per [employer] guidelines. BI-RADS Category 1 - Negative Breast Density - Category B - There are scattered areas of fibroglandular density. Breast density Category C or D implies that the patient has dense breast tissue. Dense breast tissue can make it harder to find cancer on a mammogram. Dense breast tissue is also associated with an increased risk of breast cancer. This information about the result of the mammogram report was provided to the patient to raise their awareness. Use this report when you speak with the patient about their risks for breast cancer, which includes their family history. At that time, you may recommend additional screening tests (Ultrasound or MRI) as these tests may add significant information. A negative radiographic report should not delay biopsy if a dominant or clinically suspicious mass is present. Up to ten percent of cancers are not identified on mammography. A negative report may reinforce clinical impression. Adenosis and dense breasts may obscure an underlying neoplasm. False positive reports average 6 to 10%. Patient will receive a letter notifying them of these results.
== END 2025-05-15 03:50 ==
LOC: DI 03:30
PROVIDERS: PCP Nurse Practitioner Family; Visit Provider Nurse Practitioner Family
DX: Z12.31 Encounter for screening mammogram for malignant neoplasm of breast (principal)
CPT/HCPCS: 77063; 77067

== ENCOUNTER 2025-07-11 18:31 | Outpatient (REF) | payer BC, SELFPAY ==
[2025-07-11 18:55] LABS: ALT 44 U/L (10-49); AST 46 U/L (<34); Albumin 4.3 g/dL (3.2-5.0); Alkaline Phosphatase 60 U/L (46-116); Bilirubin, Direct 0.1 mg/dL (<=0.3); Bilirubin, Total 0.4 mg/dL (0.2-1.2); Total Protein 6.7 g/dL (5.7-8.2)
== END 2025-07-11 18:32 | disposition home or self-care (01) ==
LOC: LBN 18:31
PROVIDERS: PCP Nurse Practitioner Family; Visit Provider Obstetrics & Gynecology
DX: R79.89 Other specified abnormal findings of blood chemistry (principal)
CPT/HCPCS: 80076